=== PATIENT | female | born 1955 | race Caucasian/White ===

== ENCOUNTER 2017-09-06 08:18 | Day surgery (SDC) | payer OTHER ==
[2017-09-06] MEDS ORDERED: LR 1,000 ML IV ONE (08:49)
[2017-09-06] MEDS ORDERED: LIDOCAINE 1% 2 ML INJ ID PRN (08:49)
[2017-09-06] MEDS ORDERED: fentaNYL 100 MCG/2 ML INJ IVP PRN (09:34)
[2017-09-06] MEDS ORDERED: ONDANSETRON 4 MG/2 ML VIAL IVP PRN (09:34)
[2017-09-06] MEDS ORDERED: DEXAMETHASONE 4 MG/ML VIAL IVP PRN (09:34)
[2017-09-06] MEDS ORDERED: NALOXONE HCL 0.4 MG/ML INJ IVP PRN (09:34)
[2017-09-06] MEDS ORDERED: PROPOFOL/EMULSION 500 MG/50 ML BOTTLE IV ONE (09:35)
--- NOTE | 2017-09-06 09:35 | PDANEPAE ---
ANE History of Present Illness here for egd ANE Past Medical History - Cardiovascular History Hx Hypertension: Yes Hx Arrhythmias: No Hx Chest Pain: No Hx Coronary Artery / Peripheral Vascular Disease: No Hx CHF / Valvular Disease: No Hx Palpitations: No Cardiovascular History Comment: Severe anemia. well controlled on Rx. Irregular heart beat 1-16 -due to stress. Heart cath -WNL. - Pulmonary History Hx COPD: No Hx Asthma/Reactive Airway Disease: No Hx Recent Upper Respiratory Infection: No Hx Oxygen in Use at Home: No Hx Sleep Apnea: No Sleep Apnea Screening Result - Last Documented: Negative - Neurologic History Hx Cerebrovascular Accident: No Hx Seizures: No Hx Dementia: No - Endocrine History Hx Diabetes: Yes Endocrine History Comment: on Metformin-BS run normal - Renal History Hx Renal Disorders: No - Liver History Hx Hepatic Disorders: No - Neurological & Psychiatric Hx Hx Neurological and Psychiatric Disorders: Yes Neurological / Psychiatric History Comment: bulging disc x2, pinched nerves-low back pain radiating down R leg -occ L side. Depression and anxiety. - Cancer History Hx Cancer: No - Congenital Disorder History Hx Congenital Disorders: No - GI History Hx Gastrointestinal Disorders: Yes Gastrointestinal History Comment: bleeding ulcer age 12-uses Omeprazole and probiotic - Other Health History Other Health History: none - Chronic Pain History Chronic Pain: Yes (back, R leg) - Surgical History Prior Surgeries: laminectomies x2. L heel ORIF. L heel hardware removed ANE Review of Systems Review of Systems: - Exercise capacity METS (RN): 4 METS ANE Patient History - Allergies Allergies/Adverse Reactions: No Known Allergies Allergy (Verified 09/06/17 08:59) - Home Medications Home medications: home medication list seen and reviewed Home Medications: Amlodipine Besylate 09/03/17 [Last Taken 09/05/17 21:00] Divalproex 09/03/17 [Last Taken 09/06/17 06:00] FLUoxetine 09/03/17 [Last Taken 09/05/17 21:00] LISINOPRIL/HYDROCHLOROTHIAZIDE 09/03/17 [Last Taken 09/05/17 21:00] Omeprazole 09/03/17 [Last Taken 09/05/17 21:00] Prempro 0.45-1.5 mg Tablet 09/03/17 [Last Taken 09/05/17 21:00] Probiotic 09/03/17 [Last Taken 09/05/17 21:00] QUEtiapine FUMARATE 09/03/17 [Last Taken 09/05/17 21:00] SIMVASTATIN 09/03/17 [Last Taken 09/05/17 21:00] buPROPion XL 09/03/17 [Last Taken 09/06/17 06:00] celeCOXIB 09/03/17 [Last Taken 09/06/17 06:00] metFORMIN HCL 09/03/17 [Last Taken 09/05/17 21:00] - NPO status NPO Status: no food or drink >8 hours NPO Since - Liquids (Date): 09/05/17 NPO Since - Liquids (Time): 22:00 NPO Since - Solids (Date): 09/05/17 NPO Since - Solids (Time): 22:00 - Smoking Hx Smoking Status: Never smoked ANE Labs/Vital Signs - Vital Signs Vital Signs: reviewed preoperatively; see RN documention for details Blood Pressure: 116/81 Heart Rate: 80 Respiratory Rate: 16 O2 Sat (%): 95 Height: 157.48 cm Weight: 81.647 kg ANE Physical Exam - Airway Neck exam: FROM Mallampati Score: Class 2 Mouth exam: normal dental/mouth exam - Pulmonary Pulmonary: no respiratory distress - Cardiovascular Cardiovascular: regular rate and rhythym - ASA Status ASA Status: II ANE Anesthesia Plan Anesthesia Plan: GA with mask
--- NOTE | 2017-09-06 09:58 | GIREPORT ---
[facility] Surgical Services - Endoscopy Department Patient Name: Yonny Doran Procedure Date: 09/06/2017 9:29 AM Patient Type: Outpatient Attending MD/ ER Physician: Zaid Anderson MD Procedure: Upper GI endoscopy Indications: Iron deficiency anemia, Heartburn, Personal history of peptic ulcer dis ease, Normal virtual colonoscopy within the last 3 years per patient's accoun t. Providers: Zaid Anderson MD Medicines: General Anesthesia Complications: No immediate complications. Description of Procedure: After obtaining informed consent, the endoscope was passed under direct vision. Throughout the procedure, the patient's blood pressure, pulse, and oxygen saturations were monitored continuously. The Endoscope was intro duced through the mouth, and advanced to the third part of duodenum. The uppe r GI endoscopy was accomplished without difficulty. The patient tolerated th e procedure well. Findings: The examined esophagus was normal. The entire examined stomach was normal. Biopsies were taken with a cold forceps for histology. The examined duodenum was normal. Biopsies for histology were taken wit h a cold forceps for evaluation of celiac disease. Estimated Blood Loss: Estimated blood loss: none. Post Op Diagnosis: - Normal esophagus. - Normal stomach. Biopsied. - Normal examined duodenum. Biopsied. Recommendation: - Discharge patient to home (with escort). - Patient has a contact number available for emergencies. The signs and symptoms of potential delayed complications were discussed with the pat ient. Return to normal activities tomorrow. Written discharge instructions we re provided to the patient. - Advance diet as tolerated today. - Continue present medications. - Await pathology results. - Return to primary care physician as previously scheduled. Attending Participation: I personally performed the entire procedure. Zaid Anderson MD Zaid Anderson MD 09/06/2017 9:58:00 AM This report has been signed electronicallyZaid Anderson MD Number of Addenda: 0 Note Initiated On: 09/06/2017 9:29 AM [email or web address]}
[2017-09-06 10:42] VITALS: BP 120/75; PULSE 63; RESP 18; TEMP 98.2; O2SAT 93
--- NOTE | 2017-09-06 12:31 | POSTANESTH ---
Post Anesthetic Evaluation Cardiovascular Status: Normal, Stable Respiratory Status: Normal, Stable Level of Consciousness/Mental Status: Can Participate in Eval Pain Control: Adequate, Prn Tx Ordered Nausea/Vomiting Control: Adequate, Prn Tx Ordered Complications Possibly Related to Anesthesia: None Noted
== END 2017-09-06 10:38 | disposition home or self-care (01) ==
LOC: FSGY 08:18
PROVIDERS: ATTEND Internal Medicine Gastroenterology
PROC: 0DB68ZX Excision of Stomach, Via Natural or Artificial Opening Endoscopic, Diagnostic (ICD-10-PCS; principal; 2017-09-06 09:45)
PROC: 0DB98ZX Excision of Duodenum, Via Natural or Artificial Opening Endoscopic, Diagnostic (ICD-10-PCS; principal; 2017-09-06 09:45)
DX: D50.9 Iron deficiency anemia, unspecified (principal); R12 Heartburn; Z87.11 Personal history of peptic ulcer disease
CPT/HCPCS: J2704

== ENCOUNTER 2017-10-09 07:28 | Day surgery (SDC) | payer OTHER ==
[2017-10-09] MEDS ORDERED: LR 1,000 ML IV ONE (07:52)
[2017-10-09] MEDS ORDERED: LIDOCAINE 1% 2 ML INJ ID PRN (07:52)
--- NOTE | 2017-10-09 09:30 | PDGENHP ---
History & Physical Chief Complaint: Iron deficiency anemia History of Present Illness: Hx of PATRICK, normal EGD in August. No change in BM's , no blood per rectum. Pertinent Past, Social, Family History: negative Relevant Physical Exam: Normal s1 s2 no murmer. Normal lungs, clear
--- NOTE | 2017-10-09 09:40 | PDANEPAE ---
ANE Past Medical History - Cardiovascular History Hx Hypertension: Yes Hx Arrhythmias: No Hx Chest Pain: No Hx Coronary Artery / Peripheral Vascular Disease: No Hx CHF / Valvular Disease: No Hx Palpitations: No Cardiovascular History Comment: Severe anemia. well controlled on Rx. Irregular heart beat 1-16 -due to stress. Heart cath -WNL. - Pulmonary History Hx COPD: No Hx Asthma/Reactive Airway Disease: No Hx Recent Upper Respiratory Infection: No Hx Oxygen in Use at Home: No Hx Sleep Apnea: No Sleep Apnea Screening Result - Last Documented: Negative - Neurologic History Hx Cerebrovascular Accident: No Hx Seizures: No Hx Dementia: No - Endocrine History Hx Diabetes: Yes Obesity: moderate Endocrine History Comment: on Metformin-BS run normal - Renal History Hx Renal Disorders: No - Liver History Hx Hepatic Disorders: No - Neurological & Psychiatric Hx Hx Neurological and Psychiatric Disorders: Yes Neurological / Psychiatric History Comment: bulging disc x2, pinched nerves-low back pain radiating down R leg -occ L side. Depression and anxiety. - Cancer History Hx Cancer: No - Congenital Disorder History Hx Congenital Disorders: No - GI History Hx Gastrointestinal Disorders: Yes Gastrointestinal History Comment: bleeding ulcer age 12-uses Omeprazole and probiotic - Other Health History Other Health History: none - Chronic Pain History Chronic Pain: Yes (back, R leg) - Surgical History Prior Surgeries: laminectomies x2. L heel ORIF. L heel hardware removed ANE Review of Systems Review of Systems: - Exercise capacity METS (RN): 3 METS ANE Patient History - Allergies Allergies/Adverse Reactions: No Known Allergies Allergy (Verified 09/06/17 08:59) - Home Medications Home Medications: Amlodipine Besylate 09/03/17 [Last Taken 1 Day Ago ~10/08/17] Divalproex 09/03/17 [Last Taken 10/09/17 05:00] FLUoxetine 09/03/17 [Last Taken 1 Day Ago ~10/08/17] LISINOPRIL/HYDROCHLOROTHIAZIDE 09/03/17 [Last Taken 1 Day Ago ~10/08/17] Omeprazole 09/03/17 [Last Taken 1 Day Ago ~10/08/17] Prempro 0.45-1.5 mg Tablet 09/03/17 [Last Taken 1 Day Ago ~10/08/17] Probiotic 09/03/17 [Last Taken 2 Days Ago ~10/07/17] QUEtiapine FUMARATE 09/03/17 [Last Taken 1 Day Ago ~10/08/17] SIMVASTATIN 09/03/17 [Last Taken 1 Day Ago ~10/08/17] buPROPion XL 09/03/17 [Last Taken 10/09/17 05:00] celeCOXIB 09/03/17 [Last Taken 1 Day Ago ~10/08/17] metFORMIN HCL 09/03/17 [Last Taken 1 Day Ago ~10/08/17] Lunesta 10/08/17 [Last Taken 1 Day Ago ~10/08/17] - NPO status NPO Since - Liquids (Date): 10/08/17 NPO Since - Liquids (Time): 22:00 NPO Since - Solids (Date): 10/07/17 NPO Since - Solids (Time): 20:00 - Smoking Hx Smoking Status: Never smoked ANE Labs/Vital Signs - Labs Result Diagrams: 10/09/17 08:18 - Vital Signs Blood Pressure: 107/70 Heart Rate: 71 Respiratory Rate: 18 O2 Sat (%): 93 Height: 160.02 cm Weight: 81.647 kg ANE Physical Exam - Airway Neck exam: decreased ROM Mallampati Score: Class 3 Mouth exam: normal dental/mouth exam - Pulmonary Pulmonary: no respiratory distress - Cardiovascular Cardiovascular: regular rate and rhythym - ASA Status ASA Status: III ANE Anesthesia Plan Anesthesia Plan: GA with mask, MAC
--- NOTE | 2017-10-09 10:07 | GIREPORT ---
[facility] Surgical Services - Endoscopy Department Patient Name: Yonny Doran Procedure Date: 10/09/2017 9:44 AM Patient Type: Outpatient Attending / ER Physician: Heri Rosen MD Procedure: Colonoscopy Indications: Iron deficiency anemia Providers: Heri Rosen MD Medicines: See the Anesthesia note for documentation of the administered medicatio ns Complications: No immediate complications. Description of Procedure: After obtaining informed consent, the scope was passed under direct vis ion. Throughout the procedure, the patient's blood pressure, pulse, and oxyg en saturations were monitored continuously. The Loaner scope was introduce d through the anus and advanced to the cecum, identified by appendiceal orifice and ileocecal valve. The colonoscopy was performed without difficulty. The patient tolerated the procedure well. The quality of th e bowel preparation was good. The ileocecal valve, appendiceal orifice, a nd rectum were photographed. Findings: Many small-mouthed diverticula were found in the sigmoid colon. The exam was otherwise without abnormality on direct and retroflexion v iews. Estimated Blood Loss: Estimated blood loss: none. Post Op Diagnosis: - Diverticulosis in the sigmoid colon. - The examination was otherwise normal on direct and retroflexion views . - No specimens collected. Recommendation: - Patient has a contact number available for emergencies. The signs and symptoms of potential delayed complications were discussed with the pat ient. Return to normal activities tomorrow. Written discharge instructions we re provided to the patient. - High fiber diet. - Continue present medications. - Repeat colonoscopy in 10 years for screening purposes. - Thank you for allowing me to participate in the care of your patient. Attending Participation: I personally performed the entire procedure. Heri Rosen MD Heri Rosen MD 10/09/2017 10:07:46 AM This report has been signed electronicallyHeri Rosen MD Number of Addenda: 0 Note Initiated On: 10/09/2017 9:44 AM Total Procedure Duration Time 0 hours 9 minutes 48 seconds [email or web address]
[2017-10-09] MEDS ORDERED: LR 500 ML IV PRN (10:10)
[2017-10-09] MEDS ORDERED: NALOXONE HCL 0.4 MG/ML INJ IVP PRN (10:10)
[2017-10-09] MEDS ORDERED: ONDANSETRON 4 MG/2 ML VIAL IVP PRN (10:10)
[2017-10-09] MEDS ORDERED: fentaNYL 100 MCG/2 ML INJ IVP PRN (10:10)
[2017-10-09 10:34] VITALS: BP 104/67; RESP 14; TEMP 97.5; O2SAT 95
[2017-10-09 11:06] VITALS: PULSE 73
== END 2017-10-09 11:04 | disposition home or self-care (01) ==
LOC: FSGY 07:28
PROVIDERS: ATTEND Internal Medicine Gastroenterology
PROC: 0DJD8ZZ Inspection of Lower Intestinal Tract, Via Natural or Artificial Opening Endoscopic (ICD-10-PCS; principal; 2017-10-09 09:00)
DX: D50.9 Iron deficiency anemia, unspecified (principal); K57.30 Diverticulosis of large intestine without perforation or abscess without bleeding; I10 Essential (primary) hypertension